=== PATIENT | male | born 1990 | race Caucasian/White ===

== ENCOUNTER 2018-09-28 14:41 | Outpatient (RCR) | payer OTHER ==
[~2018-09-28 14:41] MED LIST: ADVAIR IH; ALBUTEROL0.09 MG/A4 IH; PREDNISONE20 MG PO
== END 2018-10-01 09:41 | disposition home or self-care (01) ==
LOC: WSOH 14:41
DX: S51.812A Laceration without foreign body of left forearm, initial encounter (principal); W26.0XXA Contact with knife, initial encounter; Y92.59 Other trade areas as the place of occurrence of the external cause; Y99.0 Civilian activity done for income or pay; Z23 Encounter for immunization; Z79.899 Other long term (current) drug therapy